=== PATIENT | female | born 1990 | race Caucasian/White ===

== ENCOUNTER 2019-07-09 10:07 | Outpatient (CLI) | payer BC ==
[~2019-07-09] VITALS: Ht 175.3 cm; Wt 95.5 kg
[~2019-07-09 10:07] MED LIST: MARNATAL-F1 CAP PO
--- NOTE | 2019-07-09 10:10 | NUR ---
Patient ambulatory onto unit with mother at side for extended monitoring. Patient was seen in office for 39 week appointment and BPP. BPP was 4/8 so she was sent to L&D for monitoring. Patient reports good movement, occasional tightening, and some spotting. Patient states stripped her membranes at appointment today. Denies painful contractions or leaking of fluid. EFMs on, VS taken. Assessment completed. FHR 140s, moderate variability, +accelerations, no decelerations noted. Regular contractions noted, palpate moderate in intensity. Will notify for further orders. Plan of care discussed, questions answered. Call light within reach.
[2019-07-09 10:15] VITALS: BP 141/95; PULSE 74; TEMP 98.3
[2019-07-09] MEDS ORDERED: PRENATAL VITAMI1 TA3 PO (10:18)
[2019-07-09] MEDS ORDERED: UNISOM SLEEPGEL50 MG PO (10:18)
[2019-07-09] MEDS ORDERED: VITAMIN B650 MG PO (10:19)
[2019-07-09 10:30] VITALS: BP 134/88; BP 141/95; PULSE 71; PULSE 74; TEMP 98.3
[2019-07-09 10:45] VITALS: BP 132/91; PULSE 81
[2019-07-09 11:00] VITALS: BP 136/94; PULSE 78
--- NOTE | 2019-07-09 11:25 | NUR ---
Plan of care discussed with patient. Return precautions reviewed. Verbalized understanding. Patient ambulatory off of unit at this time.
== END 2019-07-09 11:25 | disposition home or self-care (01) ==
LOC: LDRO 10:07 → LDR 10:07 → LDRO 11:25
DX: Z36.83 Encounter for fetal screening for congenital cardiac abnormalities (principal); Z3A.39 39 weeks gestation of pregnancy
CPT/HCPCS: OP

== ENCOUNTER 2019-07-12 13:59 | Inpatient (IN) | payer BC ==
[2019-07-12] VITALS (28 sets, daily range): BP systolic 107–149; BP diastolic 63–96; PULSE 74–139; TEMP 97.2–97.8
[~2019-07-12] VITALS: Ht 175.3 cm; Wt 95.5 kg
[~2019-07-12 13:59] MED LIST changes: +PRENATAL VITAMI1 TA3 PO; +UNISOM SLEEPGEL50 MG PO; +VITAMIN B650 MG PO
--- NOTE | 2019-07-12 14:05 | NUR ---
Pt arrives on unit ambulatory with spouse. States regular ctx that began this am and have increased in intensity. Denies vaginal bleeding, LOF and reports GFM. Changed into a clean gown. EFM and toco applied. VSS. SVE per this RN 4-5. Admission assessment completed. Dr. Marcano notified. See physician notification. Orders for admission. IV started in RH. Labs drawn. LR infusing. Consents signed. Updated on POC. Bed locked in low position. Call light within reach. No questions or concerns at this time. 1512- Pt requesting epidural. LR bolus infusing. Sitting upright. Difficulty tracing FHR. RN at bedside adjusting monitors. FHR audible.
[2019-07-12 15:31] LABS: BASO # 0.1 (0.0-0.2); BASO % 0.4 % (0.0-2.0); GRAN # 8.9 (1.4-6.5); HEMATOCRIT 37.4 % (37.0-47.0); LYMPH % 23.8 % (20.0-51.0); MEAN CELL VOLUME 90 fl (80.0-100.0); MEAN CORPUSCULAR HEMOGLOBIN 31 pg (27.0-31.0); MEAN CORPUSCULAR HGB CONC 35 g/dl (33.0-37.0); MEAN PLATELET VOLUME 13.4 fl (7.4-10.4); MONO # 0.5 (0.1-0.6); MONO % 4.2 % (1.7-9.3); PLATELET COUNT 179 K/mm3 (130-400); RED BLOOD COUNT 4.14 M/mm3 (4.10-5.30); REDCELL DISTRIBUTION WIDTH-CV 11.9 % (11.5-14.5)
--- NOTE | 2019-07-12 19:00 | NUR ---
1841- LATE DECELERATION BEGINS INTO THE THE 80'S. JACINTO,RN AND KAYLA, RN IN ROOM TO ASSIST WITH POSITION CHANGES. 1844- SVE OF COMPLETE, BOLUS STARTED, O2 IN PLACE VIA FACEMASK. PT MOVED TO LEFT LATERAL, FHT REMAIN IN THE 70'S, SCALP STIMULATION ATTEMPTED BUT UNSUCCESSFUL. PT TURNED TO RIGHT LATERAL, STILL NO IMPROVEMENT IN FHT'S. PT THEN MOVED TO KNEE CHEST AND SCALP STIMULATION ATTEMPTED AGAIN BUT FHT'S REMAIN IN THE 60'S. 1851- DR. WARD IN ROOM TO EVALUATE. PT REPOSITIONED INTO SEMIFOWLERS. 1852- ELIUD BEARD'D, 110MLS OUT. FHT'S BEGIN TO IMPROVE TO THE 100'S 1858- PT BEGINS PUSHING WITH THIS NURSE. IN ROOM TO EVALUATE. FHT'S IMPROVED TO 120'S WITH ACCELERATION AND MODERATE VARIABILITY. THIS NURSE TO CONTINUE PUSHING WITH PT. 1917- DR. MULLEN IN ROOM FOR DELIVERY. 1921- SPONTANEOUS VAGINAL DELIVERY OF VIABLE BABY BOY. BABY TO MOTHER'S ABDOMEN, CARE ASSUMED BY Bertin NICK RN. 1923- SPONTANEOUS DELIVERY OF INTACT PLACENTA, PITOCIN STARTED PER PROTOCOL. DR. MULLEN BEGINS REPAIR OF 2ND DEGREE LACERATION. 1929- FUNDUS FIRM, LOCHIA WNL. RECOVERY STARTED.
[2019-07-13 02:00] VITALS: BP 126/83; PULSE 97; TEMP 98.4
[2019-07-13 09:25] VITALS: BP 129/74; PULSE 87; TEMP 97.8
[2019-07-13 10:05] LABS: MEAN CELL VOLUME 93 fl (80.0-100.0); MEAN CORPUSCULAR HGB CONC 34 g/dl (33.0-37.0); MEAN PLATELET VOLUME 12.6 fl (7.4-10.4); PLATELET COUNT 153 K/mm3 (130-400); RED BLOOD COUNT 3.47 M/mm3 (4.10-5.30); REDCELL DISTRIBUTION WIDTH-CV 12.3 % (11.5-14.5)
[2019-07-13 10:13] LABS: ALBUMIN 2.8 gm/dL (3.5-5.0); BILIRUBIN,TOTAL 0.3 mg/dL (0.0-1.0); CALCIUM 8.5 mg/dL (8.4-10.2); CREATININE, serum 0.84 (0.52-1.25); POTASSIUM 4.1 mmol/L (3.4-5.0); TOTAL PROTEIN 5.3 gm/dL (6.4-8.2)
--- NOTE | 2019-07-13 10:18 | NUR ---
Initial visit; Parents thanked Solar System Designer for offering congratulations and God's blessings for the of their son. Solar System Designer thanked family for choosing [facility].
[2019-07-13 10:21] LABS: HEMATOCRIT 32.1 % (37.0-47.0); HEMOGLOBIN 10.9 g/dl (12.5-16.0); MEAN CORPUSCULAR HEMOGLOBIN 31 pg (27.0-31.0)
[2019-07-13 13:00] VITALS: BP 120/84; PULSE 91; TEMP 98.1
[2019-07-13 17:40] VITALS: BP 137/89; PULSE 91; TEMP 98.3
[2019-07-13 20:00] VITALS: BP 132/93; PULSE 72; TEMP 98.2
[2019-07-14 06:50] VITALS: BP 142/83; PULSE 72; TEMP 97.8
[2019-07-14] MEDS ORDERED: IBU800 M1 PO (07:46)
[2019-07-14 08:10] VITALS: BP 103/67; PULSE 73; TEMP 98.1
[2019-07-14 11:30] VITALS: BP 124/81; PULSE 73
[2019-07-14 15:10] VITALS: BP 127/87; PULSE 86
== END 2019-07-14 16:40 | disposition home or self-care (01) | DRG 807 ==
LOC: LDRO 13:59 → LDR 14:10 → OB 22:45
PROVIDERS: Obstetrics & Gynecology; ADMIT Student in an Organized Health Care Education/Training Program
PROC: 10E0XZZ Delivery of Products of Conception, External Approach (ICD-10-PCS; principal; 2019-07-12)
PROC: 0KQM0ZZ Repair Perineum Muscle, Open Approach (ICD-10-PCS; 2019-07-12)
DX: O99.824 Streptococcus B carrier state complicating childbirth (principal); Z37.0 Single live birth; Z3A.39 39 weeks gestation of pregnancy; O76 Abnormality in fetal heart rate and rhythm complicating labor and delivery; O70.1 Second degree perineal laceration during delivery
CPT/HCPCS: J2540; J2590; J2795; J7120

== ENCOUNTER 2021-05-27 06:14 | Inpatient (IN) | payer BC ==
[2021-05-27] VITALS (25 sets, daily range): BP systolic 118–149; BP diastolic 61–90; PULSE 62–103; TEMP 98.3–98.6
[~2021-05-27] VITALS: Ht 175.3 cm; Wt 92.9 kg
[~2021-05-27 06:14] MED LIST changes: +IBU800 M1 PO
--- NOTE | 2021-05-27 06:20 | NUR ---
Presents to labor and delivery. Here for induction of labor. Assessment done, questions offered and answered.
[2021-05-27 07:14] LABS: BASO % 0.5 % (0.0-2.0); EOS # 0.1 (0.0-0.7); EOS % 0.7 % (0-4.0); GRAN # 5.6 (1.4-6.5); GRAN % 66.8 % (42.2-75.2); HEMOGLOBIN 10.1 g/dl (12.5-16.0); LYMPH # 2.2 (1.2-3.4); LYMPH % 25.9 % (20.0-51.0); MEAN CELL VOLUME 90 fl (80.0-100.0); MEAN CORPUSCULAR HEMOGLOBIN 29 pg (27.0-31.0); MEAN CORPUSCULAR HGB CONC 33 g/dl (33.0-37.0); MEAN PLATELET VOLUME 12.1 fl (7.4-10.4); MONO # 0.5 (0.1-0.6); MONO % 5.6 % (1.7-9.3); PLATELET COUNT 187 K/mm3 (130-400); RED BLOOD COUNT 3.44 M/mm3 (4.10-5.30); REDCELL DISTRIBUTION WIDTH-CV 11.9 % (11.5-14.5)
[2021-05-27] MEDS ORDERED: PROTONIX20 MG PO (07:14)
--- NOTE | 2021-05-27 07:15 | NUR ---
Rests in bed, alert. Pitocin started at two antonia units as ordered and per policy.
[2021-05-27 07:18] LABS: HEMATOCRIT 30.9 % (37.0-47.0)
--- NOTE | 2021-05-27 08:30 | NUR ---
States contractions getting stronger. Denies wanting any interventions now.
--- NOTE | 2021-05-27 09:00 | NUR ---
Dr. Ashton here. Vag exam done, and arom with moderate amount of clear fluid noted. Pad changed. 903 Anesthesia notified of request for epidural.
--- NOTE | 2021-05-27 09:30 | NUR ---
Anesthesia here. Visits with patient. Single shot given by Philippe Duff c.r.n.a. See anesthesia notes please.
--- NOTE | 2021-05-27 09:45 | NUR ---
Rests in bed, alert. States feeling better. 0950 Tums given 1000 mg per request for heart burn.
--- NOTE | 2021-05-27 10:00 | NUR ---
Rests in bed, alert. 1004 Vag check done, dilated to eight. This was told to Dr. Ashton in the hospital.
--- NOTE | 2021-05-27 10:15 | NUR ---
Dr. Ashton notified of deep variables, and that patient dilated to nine. States to sit her up in bed.
--- NOTE | 2021-05-27 10:30 | NUR ---
1033 States feeling more pressure. Vag check done, complete. Dr. Ashton notified. Prepped for delivery. 1037 Pushes with contractions with Dr. Ashton. 1040 Spontaneous delivery of baby boy by Dr. Ashton. 1043 Spontaneous delivery of placenta by Dr. Ashton. Pitocin started at 333ccs an hour as ordered and per protocol.
--- NOTE | 2021-05-27 11:00 | NUR ---
Rests in bed, alert. Holds baby lovingly. Denies any needs at this time.
--- NOTE | 2021-05-27 12:45 | NUR ---
Rests in bed, alert. Eating lunch. Denies any pain or discomfort at this time.
--- NOTE | 2021-05-27 13:45 | NUR ---
Ambulates to the bathroom, voids moderate amount of clear yellow urine. Rebecca-care done, ice pack on, gown on. 1400 Ambulates to room 208, tolerates well. Oriented to room.
[2021-05-28 02:20] VITALS: BP 136/77; PULSE 102; TEMP 98
[2021-05-28] MEDS ORDERED: IBU800 M1 PO (06:49)
[2021-05-28 08:06] LABS: HEMOGLOBIN 11.5 g/dl (12.5-16.0); MEAN CELL VOLUME 92 fl (80.0-100.0); MEAN CORPUSCULAR HEMOGLOBIN 30 pg (27.0-31.0); MEAN CORPUSCULAR HGB CONC 33 g/dl (33.0-37.0); MEAN PLATELET VOLUME 11.7 fl (7.4-10.4); PLATELET COUNT 186 K/mm3 (130-400); RED BLOOD COUNT 3.86 M/mm3 (4.10-5.30)
[2021-05-28 08:11] VITALS: BP 134/76; PULSE 82; TEMP 98.1
[2021-05-28 08:12] LABS: HEMATOCRIT 35.3 % (37.0-47.0)
[2021-05-28 08:15] LABS: ALBUMIN 3.1 gm/dL (3.5-5.0); BILIRUBIN,TOTAL 0.2 mg/dL (0.0-1.0); CALCIUM 8.9 mg/dL (8.4-10.2); CREATININE, serum 0.67 (0.52-1.25); POTASSIUM 4.2 mmol/L (3.4-5.0)
--- NOTE | 2021-05-28 10:21 | NUR ---
Initial visit; Family thanked Pipeline Integrity Engineer for offering congratulations and God's blessings for the of their son. Pipeline Integrity Engineer thanked family for choosing [facility].
== END 2021-05-28 13:47 | disposition home or self-care (01) | DRG 807 ==
LOC: LDR 06:14 → OB 11:12
PROVIDERS: ADMIT Student in an Organized Health Care Education/Training Program
PROC: 10E0XZZ Delivery of Products of Conception, External Approach (ICD-10-PCS; principal; 2021-05-27)
PROC: 0KQM0ZZ Repair Perineum Muscle, Open Approach (ICD-10-PCS; 2021-05-27)
PROC: 10907ZC Drainage of Amniotic Fluid, Therapeutic from Products of Conception, Via Natural or Artificial Opening (ICD-10-PCS; 2021-05-27)
DX: O99.284 Endocrine, nutritional and metabolic diseases complicating childbirth (principal); Z37.0 Single live birth; E28.2 Polycystic ovarian syndrome; O99.02 Anemia complicating childbirth; D64.9 Anemia, unspecified; O99.214 Obesity complicating childbirth; E66.9 Obesity, unspecified; O70.1 Second degree perineal laceration during delivery; Z3A.39 39 weeks gestation of pregnancy
CPT/HCPCS: J2590; J2795; J7120